=== PATIENT | male | born 1945 | race Caucasian/White ===

== ENCOUNTER 2019-07-24 12:53 | Outpatient (CLI) | payer MEDICARE, BC ==
[2019-07-24] MEDS: Bupivacaine 0.25% 10 ML SDV INJECT ONE (13:07)
[2019-07-24] MEDS: methylPREDNISolone Acetate 40 MG/ML SDV ONE (13:07)
[2019-07-24 13:09] VITALS: BP 151/64; PULSE 90
--- NOTE | 2019-07-24 16:11 | PROC ---
DATE OF PROCEDURE: PHYSICIAN: Marietta Enriquez CRNA PROCEDURE PERFORMED: Epidural steroid injection. INDICATION: This is a patient of Dr. Dwain Merlos. This is his 4th epidural steroid injection. His last one was done just greater than 3 months ago in April, and I did discuss risks, benefits, and alternatives of the injection with the patient. He did agree and wished to proceed. He did sign the informed consent. He is not on any anticoagulant medication as well. I did review the MRI and most of his anatomy on his MRI is lower lumbar spine at L4-5. He did show some degenerative changes there as well as the potential nerve root compression at the 4-5 level with a herniated disk, potentially facet related as well. The patient does get great results from lumbar interlaminar epidural steroid injections. PROCEDURE IN DETAIL: I did have him sitting at the edge of the bed. I did use ChloraPrep. I then went to L3-4. I am unable to advance on previous notation at 4-5 due to scar tissue. I did 3-4. I did use 3 mL of 1% lidocaine with a 25- gauge needle for skin infiltration. Following that, I did use an 18-gauge needle utilizing loss of resistance technique. Loss of resistance was obtained without any difficulty. Following that, I did place 40 mg of Depo-Medrol, 2 mL of 0.25% Marcaine preservative-free and 3 mL of preservative-free normal saline. The patient tolerated the procedure without any difficulty. I did discuss with him to continue his current regimen which he takes for pain ibuprofen, but he did state that is effective. He did rate his pain today at about 5/10 prior to the procedure and his pain just started to come back he thought about two weeks ago, so following the injection, he did have no pain or discomfort. I did tell him that the local anesthetic would wear off and then, at that point, he would have to wait 3 to 5 days for the steroid to begin working. He did remember that from previous injections as well. I did reassure him as well to call the hospital if he had any questions or concerns at all in regard to the injection. I will continue to see him and manage him as needed. /[id number]/MODL
== END 2019-07-24 13:48 | disposition home or self-care (01) ==
LOC: LL.PAIN 12:53
PROVIDERS: ATTEND Nurse Practitioner
DX: M54.16 Radiculopathy, lumbar region (principal)
CPT/HCPCS: 62322; J1030; J3490

== ENCOUNTER 2019-09-06 06:29 | Emergency (ER) | payer MEDICARE, BC ==
--- NOTE | 2019-09-06 07:01 | EDM.PDOC ---
ED HPI GENERAL MEDICAL PROBLEM - General Chief Complaint: Lower Extremity Injury/Pain Stated Complaint: Right toe pain Time Seen by Provider: 09/06/19 06:50 Source of Information: Reports: Patient, Old Records ([facility] chart/EMR.) History Limitations: Reports: No Limitations - History of Present Illness INITIAL COMMENTS - FREE TEXT/NARRATIVE: The patient was brought to the emergency room via private automobile by his neighbor for evaluation of 9/10 right foot pain with weightbearing and 5/10 foot pain at rest secondary to a minor twisting injury on the step outside of his home at about 22:00 hours yesterday evening. No history of fall, head injury, loss of consciousness, neck/back pain, dizziness, neurological deficits , or other complaints or injuries. Patient did take 400 mg of ibuprofen prior to arrival. The patient denies any chest pain/pressure, heart flutter, dizziness, orthostasis, orthopnea, diaphoresis, paresthesias, recent decreased exercise tolerance, or any other anginal-type symptoms. No recent history of abdominal pain, heartburn, nausea, diarrhea, melena, gross hematochezia, or any food intolerance, including fatty foods, etc.. The patient also denies any recent fever, cough, wheezing, dyspnea, etc.. Onset: Sudden Onset Date: 09/05/19 Onset Time: 22:00 Duration: Constant Location: Reports: Lower Extremity, Right. Denies: Head, Face, Neck, Chest, Abdomen, Back, Pelvis, Upper Extremity, Left, Upper Extremity, Right, Lower Extremity, Left, Radiates to Quality: Reports: Same as Previous Episode, Throbbing Severity: Moderate Improves with: Reports: Rest Worsens with: Reports: Movement Context: Reports: Trauma (As above) Associated Symptoms: Denies: Confusion, Chest Pain, Cough, Diaphoresis, Fever/ Chills, Headaches, Loss of Appetite, Malaise, Nausea/Vomiting, Shortness of Breath, Syncope, Weakness Treatments PLANER HAND: Reports: NSAIDS Right Feet Pain Score (Numeric/FACES): 5 - Related Data Allergies Allergy/AdvReac Type Severity Reaction Status Date / Time No Known Allergies Allergy Verified 09/06/19 06:38 Home Meds: Home Meds LORazepam 1 mg PO BID 08/08/15 [History] Albuterol [Proair HFA] 1 - 2 puff INH Q4H PRN 08/14/16 [History] FLUoxetine [PROzac] 1 cap PO DAILY 08/14/16 [History] Nicotine [Habitrol] 21 mg TRDERM DAILY #30 patch 08/18/16 [Rx] Past Medical History HEENT History: Reports: Allergic Rhinitis, Cataract, Hard of Hearing, Impaired Vision, Other (See Below). Denies: Glaucoma, Macular Degeneration, Otitis Media , Retinal Detachment Other HEENT History: Seasonal allergic rhinitis. Patient wears reading glasses. Mild bilateral presbycusis. Cardiovascular History: Reports: Aneurysm, Arrhythmia, High Cholesterol, Other ( See Below). Denies: Afib, Blood Clots/VTE/DVT, CAD, Heart Murmur, Hypertension , AR, PVD, Syncope Other Cardiovascular History: PVCs. Possible small abdominal aortic aneurysm by CT scan on 08/14/2016. Respiratory History: Reports: Bronchitis, Recurrent, COPD, Intubation, Previous , Pneumonia, Recurrent. Denies: Asthma, Intubation, Difficult, PE, Pneumothorax , Sleep Apnea, TB Gastrointestinal History: Reports: Diverticulosis, Hiatal Hernia, Other (See Below). Denies: Celiac Disease, Cholelithiasis, Chronic Constipation, Chronic Diarrhea, Colon Polyp, Fecal Incontinence, Gastritis, GERD, GI Bleed, Hepatitis , Irritable Bowel Syndrome, Jaundice, Pancreatitis, PUD Other Gastrointestinal History: History of diverticulitis. Genitourinary History: Reports: BPH. Denies: Acute Renal Failure, Chronic Renal Insuffiency, Renal Calculus, STD, Urinary Incontinence, UTI, Recurrent Musculoskeletal History: Reports: Arthritis, Back Pain, Chronic, Fracture, Neck Pain, Chronic, Osteoarthritis, Other (See Below). Denies: Amputation, Gout, RA , SLE Other Musculoskeletal History: Digit #5 of the right hand phalangeal fracture at age 11. Distal fibular avulsion fracture in the late 1960s. Neurological History: Reports: Headaches, Chronic, Other (See Below). Denies: Cerebral Aneurysms, Concussion, CVA, Head Trauma, Migraines, MS, Neuropathy, Peripheral, Parkinson's, Seizure, TIA, Vertigo Other Neuro History: Stress headaches. Psychiatric History: Reports: Anxiety, Depression. Denies: Abuse, Victim of, ADD, ADHD, Addiction, Psych Hospitalization(s), PTSD, Suicide Attempt, Suicidal Ideation Endocrine/Metabolic History: Reports: None. Denies: Diabetes, Type I, Diabetes , Type II, Diabetes Mellitus, Type 3c, Hypothyroidism, IDDM Hematologic History: Reports: None. Denies: Anemia, Blood Transfusion(s), Iron Deficiency Immunologic History: Reports: None. Denies: AIDS, HIV, SLE Oncologic (Cancer) History: Reports: None. Denies: Basal Cell Carcinoma, Colon , Hodgkin's Lymphoma, Leukemia, Lymphoma, Malignant Melanoma, Non-Hodgkin's Lymphoma, Prostate, Squamous Cell Carcinoma Dermatologic History: Reports: Psoriasis. Denies: Eczema - Infectious Disease History Infectious Disease History: Reports: Chicken Pox, Measles, Mumps, Pertussis ( Whooping Cough), Shingles (Right gastrocnemius region in about 2013.). Denies: C-Difficile, Meningitis, Mononucleosis, MRSA, Rheumatic Fever, Rubella, Scarlet Fever, TB, VRE - Past Surgical History Head Surgeries/Procedures: Reports: None HEENT Surgical History: Reports: Adenoidectomy, Cataract Surgery, Oral Surgery, Tonsillectomy, Other (See Below). Denies: Eye Surgery, Laser Surgery, LASIK, Myringotomy w Tube(s), Naso-Sinus Surgery Other HEENT Surgeries/Procedures: Tonsillectomy and adenoidectomy at age 5. [place] teeth extraction x 2 lowers at about age 25 with other teeth extractions thereafter. Bilateral cataract surgery in October 2016. Cardiovascular Surgical History: Reports: None. Denies: Varicose Respiratory Surgical History: Reports: None. Denies: Thoracentesis GI Surgical History: Reports: Colonoscopy, Other (See Below). Denies: Appendectomy, Cholecystectomy, EGD, Hernia, Abdominal, Hernia, Inguinal, Hernia Repair/Other Other GI Surgeries/Procedures: Colonoscopy in 2004. Male Surgical History: Reports: Circumcision, Other (See Below). Denies: TURP-Transurethral Resection of Prostate, Vasectomy Other Male Surgeries/Procedures: Circumcision as an . Endocrine Surgical History: Reports: None. Denies: Thyroid Biopsy Neurological Surgical History: Reports: Laminectomy, Lumbar Spine, Other (See Below). Denies: C-Spine, Discectomy, Sacral Spine, Spinal Fusion, Thoracic Spine, Vertebroplasty Other Neurological Surgeries/Procedures: Laminectomy at L4-L5 in 1977. Musculoskeletal Surgical History: Denies: Arthroscopic Procedure, Carpal Tunnel , Ganglion Cyst, Joint Replacement, ORIF, Shoulder Surgery Oncologic Surgical History: Reports: None Dermatological Surgical History: Reports: None - Past Imaging History Past Imaging History: Reports: CAT Scan (CT of the abdomen on 08/14/2016.), MRI (MRI of the lumbar spine on 01/13/2019 and 04/21/2014.) Social & Family History - Tobacco Use Smoking Status *Q: Current Every Day Smoker Tobacco Use Within Last Twelve Months: Cigarettes Years of Tobacco use: 52 Packs/Tins Daily: 1 Packs/Tins Daily Comment: Started smoking at age 22. Used Tobacco, but Quit: No Smoking Cessation Information Provided To Patient: Yes Second Hand Smoke Exposure: No Second Hand Smoke Education Provided: No - Caffeine Use Caffeine Use: Reports: Coffee (4 cups/day). Denies: Energy Drinks, Soda, Tea - Alcohol Use Alcohol Use History: Yes Days Per Week of Alcohol Use: 2 Number of Drinks Per Day: 2 Number of Drinks Per Day Comment: Usually wine or rum. No previous DWIs, problems with alcohol abuse, etc. 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 ED EXAM, GENERAL - Physical Exam Exam: See Below Exam Limited By: No Limitations General Appearance: Alert, WD/WN, No Apparent Distress Head: Atraumatic, Normocephalic. No: Facial Swelling, Facial Tenderness, Sinus Tenderness Neck: Supple, Non-Tender, Full Range of Motion, Carotid Bruit (Mild bilateral carotid bruits). No: Lymphadenopathy (L), Lymphadenopathy (R), Thyromegaly Respiratory/Chest: No Respiratory Distress, No Accessory Muscle Use, Chest Non- Tender, Rhonchi (Occasional bilateral). No: Rales, Wheezing, Pleural Rub, Retractions Cardiovascular: Normal Peripheral Pulses, Regular Rate, Rhythm, No Edema, No Gallop, No JVD, No Murmur, No Rub. No: Gallop/S3, Gallop/S4, Friction Rub Peripheral Pulses: 2+: Radial (L), Radial (R), Dorsalis Pedis (L), Dorsalis Pedis (R) GI/Abdominal: Normal Bowel Sounds, Soft, Non-Tender, No Organomegaly, No Distention, No Abnormal Bruit, No Mass, Pelvis Stable. No: Guarding (Male) Exam: Deferred Rectal (Males) Exam: Deferred Back Exam: Normal Inspection, Full Range of Motion. No: CVA Tenderness (L), CVA Tenderness (R), Muscle Spasm Extremities: No Pedal Edema, Normal Capillary Refill, Limited Range of Motion ( Secondary to left foot pain), Other (Moderate right distal dorsal pain and swelling with mild ecchymosis but no direct foot deformity crepitation, etc.. Otherwise no evidence of right knee, hip, etc. abnormalities). No: Krishna's Sign Neurological: Alert, Oriented, CN II-XII Intact, Normal Cognition, Normal Gait, No Motor/Sensory Deficits Psychiatric: Normal Affect, Normal Mood Skin Exam: Ecchymosis (Mild in right foot as above). No: Diaphoretic, Wound/ Incision Lymphatic: No Adenopathy ED TRAUMA EXTREMITY PROCEDURES - Splinting Right Lower Extremity Pre-Procedure NV Status: Normal Post-Procedure NV Status: Normal Splint Material: Other (Foot boot) Applied & Form Fitted By: Provider Provider Post-Splint Application NV Check: NV Status Normal, Good Position Complications: No Course - Vital Signs Last Recorded V/S: Last Vital Signs Temp 36.8 C 09/06/19 08:07 Pulse 93 09/06/19 08:07 Resp 18 09/06/19 08:07 BP 140/66 09/06/19 08:07 Pulse Ox 94 L 09/06/19 08:07 Vital Signs - 24 hr 09/06/19 09/06/19 06:32 08:07 Temperature [ 36.2 C 36.8 C Temporal] Pulse, 85 93 Peripheral [ Right Pulse Oximetry] Respiratory 14 18 Rate Blood Pressure 173/77 H 140/66 [Right Upper Arm] O2 Sat by Pulse 97 94 L Oximetry - Orders/Labs/Meds Orders: Active Orders 24 hr Category Date Time Status Foot Comp Min 3V Rt [CR] Stat Exams 09/06/19 07:02 Ordered Durable Medical Equipment for Discharge [DME for Oth 09/06/19 07:27 Ordered Discharge] [COMM] Routine Durable Medical Equipment for Discharge [DME for Ot 09/06/19 07:28 Ordered Discharge] [COMM] Routine Obtain Past Medical Record [OM.PC] Routine Ot 09/06/19 07:01 Active Labs: None Meds: None - Radiology Interpretation Free Text/Narrative:: X-rays of the right foot, complete, shows a small lateral avulsion fracture of the distal first metatarsal with additional possible hairline defect in the distal metatarsal displacement or angulation. Moderate osteoarthritic changes. Remote distal fibular avulsion fracture also noted. Final x-ray report received prior to patient discharge with distal metatarsal fracture, etc. not noted in this report. Departure - Departure Time of Disposition: 08:20 Disposition: Home, Self-Care 01 Clinical Impression: COPD (chronic obstructive pulmonary disease), Abdominal aneurysm, Osteoarthritis, Tobacco abuse counseling, PVCs (premature ventricular contractions), Right foot pain, Elevated blood pressure reading - Discharge Information *PRESCRIPTION DRUG MONITORING PROGRAM REVIEWED*: Not Applicable *COPY OF PRESCRIPTION DRUG MONITORING REPORT IN PATIENT ELISHA: Not Applicable Instructions: Abdominal Aortic Aneurysm, [id number], Health Risks of Smoking , Foot Sprain, Walking Boot, Adult, Avulsion Fracture of the Foot, Steps to Quit Smoking Referrals: Lamar Millan ALODIZE MACHINE HELPER [Primary Care Provider] - Forms: ED Department Discharge Additional Instructions: 1. Followup with your regular provider in 7 days as directed for reevaluation and possible repeat x-rays of your right foot.. Bring these discharge instructions with you to that visit. 2. Tylenol 650 mg by mouth every 4 hours and/or OTC ibuprofen 2-3 tabs by mouth every 6 hours with food as directed./needed. You may stagger these medications for 48-72 hours only, which essentially means that you are receiving a pain medication about every 2 hours. 3. Foot elevation and ice packs as directed. 4. Limited weightbearing on the right foot and continuous use of foot boot and crutches as directed with exception of bathing, sleeping, etc. 5. Stop all tobacco use MICHEAL as directed/per provided information and consider contacting Quit LIne, etc.. 6. Continue to observe your blood pressures closely by your regular provider. 7. Discuss update of your preventative healthcare at follow-up, including yearly blood work, PFTs, and colonoscopy with additional abdominal aortic ultrasound, and carotid artery Doppler studies in the near future secondary to mild carotid bruits and previous history of small abdominal aortic aneurysm based on today's evaluation. 8. Immediately after this visit verify that your cellular telephone's voicemail has been activated and is empty. Also verify that your home telephone 's answering machine is operating properly and has space to receive messages. Note that it is sometimes necessary for us to be able to contact you at a later date to discuss your medical care. 9. Please remember that we are ALWAYS here for you and want to answer any questions you may have. Feel free to call the hospital any time and we call you back MICHEAL. Sepsis Event Note - Evaluation Sepsis Screening Result: No Definite Risk - Focused Exam Vital Signs: Vital Signs Temp Pulse Resp BP Pulse Ox 09/06/19 08:07 36.8 C 93 18 140/66 94 L 09/06/19 06:32 36.2 C 85 14 173/77 H 97 Date Exam was Performed: 09/06/19 Time Exam was Performed: 08:16 - Problem List & Annotations (1) Right foot pain SNOMED Code(s): 51660624 Code(s): M79.671 - PAIN IN RIGHT FOOT Status: Acute Priority: High Current Visit: Yes Onset Date: 09/05/19 Annotation/Comment:: Right foot sprain, however cannot rule out metatarsal hairline fracture and/or distal metatarsal avulsion fracture as above. Close follow-up by regular provider as per discharge instructions. Patient was placed in a foot boot and provided crutches by the nurse with activity restrictions, etc. discussed. (2) Abdominal aneurysm SNOMED Code(s): 198224458, 107105828 Code(s): I71.4 - ABDOMINAL AORTIC ANEURYSM, WITHOUT RUPTURE Status: Acute Current Visit: Yes Annotation/Comment:: Evidence of possible beginning abdominal aortic aneurysm by CT scan in 2016 as above. Follow-up abdominal aortic aneurysm to be scheduled that follow-up visit as per discharge instructions. (3) COPD (chronic obstructive pulmonary disease) SNOMED Code(s): 24812494 Code(s): J44.9 - CHRONIC OBSTRUCTIVE PULMONARY DISEASE, UNSPECIFIED Status : Acute Priority: Medium Current Visit: Yes Annotation/Comment:: Tobacco cessation once again encouraged with information provided at discharge. Patient agrees to reinitiate his previous NicoDerm patch. He did receive his influenza booster this season. He would benefit from PFTs as per discharge instructions. No recent fever or bronchitic type symptoms. Qualifiers: COPD type: unspecified COPD Qualified Code(s): J44.9 - Chronic obstructive pulmonary disease, unspecified (4) Osteoarthritis SNOMED Code(s): 288992960 Code(s): M19.90 - UNSPECIFIED OSTEOARTHRITIS, UNSPECIFIED SITE Status: Chronic Priority: Medium Current Visit: Yes Annotation/Comment:: Otherwise stable by history. Qualifiers: Osteoarthritis location: multiple joints Osteoarthritis type: primary Qualified Code(s): M15.0 - Primary generalized (osteo)arthritis (5) PVCs (premature ventricular contractions) SNOMED Code(s): 75227191 Code(s): I49.3 - VENTRICULAR PREMATURE DEPOLARIZATION Status: Chronic Priority: Medium Current Visit: Yes Annotation/Comment:: Nonsymptomatic. No chest pain or anginal type symptoms. (6) Tobacco abuse counseling SNOMED Code(s): 423866073, 823313017, 024260581 Code(s): Z71.6 - TOBACCO ABUSE COUNSELING Status: Chronic Priority: Medium Current Visit: Yes Annotation/Comment:: As above. (7) Elevated blood pressure reading SNOMED Code(s): 40340253 Code(s): R03.0 - ELEVATED BLOOD-PRESSURE READING, W/O DIAGNOSIS OF HTN Status: Acute Priority: Medium Current Visit: Yes Onset Date: 09/06/19 Annotation/Comment:: No previous history of hypertension. Continue to observe closely by his regular provider. - Problem List Review Problem List Initiated/Reviewed/Updated: Yes - My Orders Last 24 Hours: My Active Orders 09/06/19 07:01 Obtain Past Medical Record [OM.PC] Routine 09/06/19 07:02 Foot Comp Min 3V Rt [CR] Stat 09/06/19 07:27 Durable Medical Equipment for Discharge [DME for Discharge] [COMM] Routine 09/06/19 07:28 Durable Medical Equipment for Discharge [DME for Discharge] [COMM] Routine - Assessment/Plan Last 24 Hours: My Active Orders 09/06/19 07:01 Obtain Past Medical Record [OM.PC] Routine 09/06/19 07:02 Foot Comp Min 3V Rt [CR] Stat 09/06/19 07:27 Durable Medical Equipment for Discharge [DME for Discharge] [COMM] Routine 09/06/19 07:28 Durable Medical Equipment for Discharge [DME for Discharge] [COMM] Routine Assessment:: As above Plan: As above. Extensive precautions were given to the patient, who is in agreement with the treatment plan. See Patient Instructions for further treatment and plan.
[2019-09-06 08:07] VITALS: BP 140/66; PULSE 93
== END 2019-09-06 08:20 | disposition home or self-care (01) ==
LOC: LL.ED 06:29
DX: M79.671 Pain in right foot (principal); M19.90 Unspecified osteoarthritis, unspecified site; J44.9 Chronic obstructive pulmonary disease, unspecified; I71.4 Abdominal aortic aneurysm, without rupture; I49.3 Ventricular premature depolarization; R03.0 Elevated blood-pressure reading, without diagnosis of hypertension; Z71.6 Tobacco abuse counseling; E78.00 Pure hypercholesterolemia, unspecified; F41.9 Anxiety disorder, unspecified; F32.9 Major depressive disorder, single episode, unspecified; F17.210 Nicotine dependence, cigarettes, uncomplicated; Z79.899 Other long term (current) drug therapy
CPT/HCPCS: 73630-RT; 99283-25